=== PATIENT | male | born 1995 | race Hispanic/Latino ===

== ENCOUNTER 2017-07-22 10:04 | Outpatient (CLI) | payer BC, OTHER ==
--- NOTE | 2017-07-22 14:11 | CT ---
ABDOMEN CT WITH CONTRAST PELVIC CT WITH CONTRAST: Date: 07/22/17 HISTORY: Cramping. History of Crohn's. Evaluate for Crohn's colitis. Undescended left testicle. COMPARISON: None. TECHNIQUE: An abdomen and pelvic CT are performed with IV and oral contrast. Coronal reformatted images are subm itted for interpretation. FINDINGS: ABDOMEN CT: Lung bases are clear. Heart size is normal. No significant pericardial fluid. The descending thoracic aorta and abdominal aorta have a normal caliber. No periaortic fat stranding. Symmetric attenuation of psoas muscles. Intra and extrahepatic portal vein is patent. Contracted gallbladder. No evidence of cholecystitis. Liver, spleen, pancreas, and adrenal glands have appropriate enhancement. No gastrohepatic, retrocrural, or periportal lymphadenopathy. There are scattered mildly enlarged mesenteric lymph nodes noted in the left upper quadrant and right lower quadrant mesentery. Additionally, there are enlarged periaortic and aortocaval lymph nodes. Re presentative enlarged lymph node in the mesentery measures 1.2 x 0.8 cm. Symmetric enhancement of the kidneys. Bilaterally, no obstructive uropathy. No mesenteric mass, free air, or free fluid. Gastric mucosa and duodenum are unremarkable. There is mild enhancement of the proximal jejunum. No a ssociated obstruction. Overall, small bowel loops have a normal caliber. Ileocecal junction is normal . Minimal fecalization of the terminal ileum likely due to incompetent ileocecal valve. Normal calibe r appendix. Scattered fecal material in a nondistended, nondilated colon. Limited evaluation of the l eft hemicolon due to inadequate distention. Minimal hyperemia and lymphadenopathy along the mesenteri c side of the descending colon is nonspecific. No evidence of bowel obstruction or bowel perforation. PELVIC CT: Urinary bladder is decompressed. No pelvic mass, lymphadenopathy, free air, or free fluid. No lytic or blastic lesions in the osseous structures. IMPRESSION: 1. Nonspecific lymphadenopathy as described above, which is presumed to be reactive. 2. Mid mucosal prominence of the proximal jejunum. 3. Mild mucosal prominence of the left hemicolon, which is nonspecific given lack of adequate disten tion. Hyperemia and increased vessels along the mesenteric side of the descending colon is noted, whi ch is nonspecific and may be reactive. Associated lymph nodes are noted. POS: [facility]
[2017-07-22] MEDS ORDERED: Iopamidol 370 76% 100 ML VIAL ONE (15:14)
== END 2017-07-22 10:05 | disposition home or self-care (01) ==
LOC: CT 10:04
PROVIDERS: ATTEND Internal Medicine Gastroenterology
DX: K50.10 Crohn's disease of large intestine without complications (principal); R59.0 Localized enlarged lymph nodes
CPT/HCPCS: 74177

== ENCOUNTER 2024-03-18 08:12 | Outpatient (CLI) | payer BC | END 2024-03-18 08:13 | disposition home or self-care (01) | LOC: BICULT 08:12 | PROVIDERS: ATTEND Physician Assistant Medical | DX: R79.89 Other specified abnormal findings of blood chemistry (principal); E55.9 Vitamin D deficiency, unspecified; K76.0 Fatty (change of) liver, not elsewhere classified; R16.2 Hepatomegaly with splenomegaly, not elsewhere classified | CPT/HCPCS: 76705 ==